=== PATIENT | female | born 1985 | race African-American/Black ===

== ENCOUNTER 2022-05-06 09:27 | Emergency (ER) | payer OTHER | END 2022-05-06 10:30 | disposition left against medical advice (07) | LOC: ERS 09:27 | DX: Z53.21 Procedure and treatment not carried out due to patient leaving prior to being seen by health care provider (principal) ==

== ENCOUNTER 2024-10-11 22:13 | Emergency (ER) | payer OTHER ==
[2024-10-11] MEDS ORDERED: Dexamethasone 10 MG/ML VIAL ONE (23:44)
[2024-10-11] MEDS ORDERED: Ketorolac Tromethamine 30 MG (1 mL) VIAL ONE (23:44)
[2024-10-11] MEDS ORDERED: Ondansetron PF 4 MG/2 ML Vial ONE (23:45)
[2024-10-12] MEDS ORDERED: Acetaminophen 500 MG TAB ONE (00:19)
[2024-10-12 01:07] LABS: #Basophils 0.06 10x3/uL (0.0-0.2); #Eosinophils 0.13 10x3/uL (0.0-0.7); #Monocytes 0.55 10x3/uL (0.11-0.59); #Neutrophils 3.03 10x3/uL (1.40-6.50); %Basophils 0.7 % (0.0-1.0); %Eosinophils 1.6 % (0.0-10.0); %Lymphocytes 53.5 % (21.0-51.0); %Monocytes 6.7 % (0.0-10.0); %Neutrophils 37.1 % (42.0-75.0); Hematocrit 43.2 % (36.0-47.0); Hemoglobin 14.7 g/dL (12.0-16.0); Mean Corpuscular Hemoglobin 30.9 pg (27.0-31.0); Mean Corpuscular Volume 90.9 fL (78.0-98.0); Platelet Count 238 10x3/uL (130-400); Red Blood Cell (RBC) Count 4.75 mill/uL (4.20-5.40); White Blood Cell (WBC) Count 8.18 10x3/uL (4.8-10.8)
[2024-10-12 01:19] LABS: BHCG - Serum Negative (NEGATIVE); Pregs Control Background? CLEAR/WHITE (CLR/WHITE); Pregs Control Bar Appear? YES (CONTROL BAR)
[2024-10-12 02:07] LABS: ALT (SGPT) 23 U/L (Less than 34); AST (SGOT) 32 U/L (11-34); Albumin 4.1 g/dL (3.1-4.5); Alkaline Phosphatase 83 U/L (40-110); Anion Gap 18 mmol/L (10-20); BUN (Urea Nitrogen) 7 mg/dL (7.0-18.7); Bilirubin, Total 0.3 mg/dL (0.3-1.2); Calc. Creatinine Clearance 0 mL/min (70-130); Calcium 9.0 mg/dL (7.8-10.44); Carbon Dioxide 18 mmol/L (22-29); Chloride 106 mmol/L (98-107); Globulin 3.5 g/dL (2.4-3.5); Glucose 84 mg/dL (70-105); Potassium 3.5 mmol/L (3.5-5.1); Sodium 138 mmol/L (136-145)
== END 2024-10-12 02:27 | disposition home or self-care (01) ==
LOC: ERS 22:13
DX: M25.511 Pain in right shoulder (principal); F17.210 Nicotine dependence, cigarettes, uncomplicated; X50.0XXA Overexertion from strenuous movement or load, initial encounter
CPT/HCPCS: 36415; 80053; 84703; 85025; 93005; 96374; 96375; J1100; J1885; J2270; J2405